=== PATIENT | female | born 1995 | race Caucasian/White ===

== ENCOUNTER 2023-03-31 18:00 | Emergency (ER) | payer MEDICAID | END 2023-03-31 19:17 | disposition short-term general hospital (02) | LOC: MADERS 18:00 | DX: O21.9 Vomiting of pregnancy, unspecified (principal); O99.612 Diseases of the digestive system complicating pregnancy, second trimester; Z3A.14 14 weeks gestation of pregnancy; Z87.891 Personal history of nicotine dependence | CPT/HCPCS: 99284 ==